=== PATIENT | male | born 1965 | race Caucasian/White ===

== ENCOUNTER → 2024-10-09 | Outpatient (CLI) | payer OTHER, SELFPAY ==
[2024-10-09 16:54] LABS: Hematocrit 46.3 % (40-54); Hemoglobin 16.0 g/dL (13.0-16.5); Immature Granulocytes Count 0.030 X10^3/uL (0.0-0.0); Mean Corp Hgb Conc 34.6 g/dL (32-36); Mean Corpuscular Volume 95.1 fL (80-94); Mean Platelet Vol. 11.3 fl (6.2-12.0); NRBC Flagged by Analyzer 0 % (0-5); Platelet Count 203 K/mm3 (150-450); RBC Distribution Width CV 12.2 % (11.6-14.6); RBC Distribution Width SD 42.8 fl (35.1-43.9); Red Blood Count 4.87 M/mm3 (4.6-6.2); White Blood Count 8.8 K/mm3 (4.4-11.0)
[2024-10-09 17:44] LABS: AST(SGOT) 20 U/L (<=37); Alanine Aminotransfer ALT/SGPT 19 U/L (<=46); Albumin, Serum 4.4 g/dL (3.4-4.8); Alkaline Phosphatase 55 U/L (40-129); Anion Gap 10 (5-15); BUN 15 mg/dL (4-19); BUN/Creat Ratio 12.6 RATIO (10-20); Calcium,Total 9.8 mg/dL (7.6-11.0); Carbon Dioxide 24.7 mmol/L (21.0-32.0); Chloride 105 mmol/L (98-108); Globulin 3.0 g/dL (2.2-4.2); Glucose 82 mg/dL (70-99); Potassium 4.4 mmol/L (3.3-5.1)
[2024-10-09 19:28] LABS: Amylase 40 U/L (28-100); Lipase 29 U/L (13-75)
== END | disposition home or self-care (01) ==
LOC: VSLAB 11:30
DX: R10.9 Unspecified abdominal pain (principal)
CPT/HCPCS: 36415; 80053; 82150; 83690; 85025

== ENCOUNTER → 2024-10-17 | Outpatient (CLI) | payer OTHER, SELFPAY ==
--- OUTSIDE RECORDS SUMMARY | 2024-10-17 07:14 | XMS RPT_ITS | CCD ---
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 Name Role Phone Beam FREEZING ROOM WORKER-C, Zebulun Primary Care Provider Beam FREEZING ROOM WORKER-C, Zebulun Attending Provider Beam VSC, Zebulun Referring Unavailable Beam VSC, Zebulun Attending Unavailable Beam VSC, Zebulun Primary Care Unavailable Beam VSC, Zebulun Attending Unavailable Beam VSC, Zebulun Primary Care Unavailable Problems Problem Classification Problem Date Documented Date Episodic/Chronic Abdominal pain (2 sources) Right upper quadrant pain; Translations: [Unspecified abdominal pain] Onset: 10-14-2024 Episodic Administrative/social admission (1 source) Administrative reason for encounter; Translations: [Encounter for other administrative examinations] 02-02-2023 Episodic Results Test Name Value Interpretation Reference Range Facility Absolute lymphocyte countOrd ered By: Roverto Posey on 10-09-2024 Lymphocytes Auto (Unsp spec) [#/Vol] 2.07 10*3/uL 0.83-4.51 [facility] Absolute neutrophil countOrd ered By: Roverto Posey on 10-09-2024 Neutrophils (Bld) [#/Vol] 6.0 10*3/uL 2.0-7.7 [facility] Amylaseon 10-09-2024 NICOLASA 40 U/L Normal 28-100 [facility] Comment on above: Performed By: #### L 500.4050, L501.2400, L501.2450, L100.0100 #### [facility] [address] [place], [place], [address] Anion gap in Serum or Plasma Ordered By: Roverto Posey on 10-09-2024 Anion gap [Moles/Vol] 10 mmol/L 5-15 [facility] Automated lymphocyte count a s percentage of total leukocytesOrdered By: Zebulun Beam on 10-09-2024 Lymphocytes/100 WBC Auto (Unsp spec) 23.5 % 19- [facility] BUN/creatinine ratioOrdered By: Zebulun Beam on 10-09-2024 Urea nitrogen/Creatinine [Mass ratio] 12.6 mg/mg 10-20 [facility] Basophil percentageOrdered B y: Zebulun Beam on 10-09-2024 Basophils/100 WBC (Bld) 0.6 % 0-[address] [facility] Bilirubin, totalOrdered By: Zebulun Beam on 10-09-2024 Bilirubin [Mass/Vol] 0.42 mg/dL 0.00-1.30 [facility] CBC W/Diff, Automatedon 09-18 Absolute Lymph 2.07 X10 3/uL Normal 0.83-4.51 [facility] Comment on above: Performed By: #### L 500.4050, L501.2400, L501.2450, L100.0100 #### [facility] [address] [place], [address] Absolute Neut 6.0 X10 3/uL Normal 2.0-7.7 [facility] Comment on above: Performed By: #### L 500.4050, L501.2400, L501.2450, L100.0100 #### [facility] [address] [place], [address] Basophils/100 WBC (Bld) 0.6 % Normal 0-[address] [facility] Comment on above: Performed By: #### L 500.4050, L501.2400, L501.2450, L100.0100 #### [facility] [address] [place], [address] Eosinophils/100 WBC (Bld) 0.8 % Normal 0-5 [facility] Comment on above: Performed By: #### L 500.4050, L501.2400, L501.2450, L100.0100 #### [facility] [address] [place], [address] Erythrocyte distribution width (RBC) [Ratio] 12.2 % Normal 11.6-14.6 [facility] Comment on above: Performed By: #### L 500.4050, L501.2400, L501.2450, L100.0100 #### [facility] [address] [place], [address] Hematocrit (Bld) [Volume fraction] 46.3 % Normal 40-54 [facility] Comment on above: Performed By: #### L 500.4050, L501.2400, L501.2450, L100.0100 #### [facility] [address] [place], [address] Hemoglobin (Bld) [Mass/Vol] 16.0 g/dL Normal 13.0-16.5 [facility] Comment on above: Performed By: #### L 500.4050, L501.2400, L501.2450, L100.0100 #### [facility] [address] [place], [address] IG% 0.300 Normal 0.0-0.9 [facility] Comment on above: Result Comment: IG% - Immature Granulocytes (promyelocytes, myelocytes and metamyelocytes) > 1% indicates that a LEFT SHIFT is Present. Performed By: #### L 500.4050, L501.2400, L501.2450, L100.0100 #### [facility] [address] [place], [address] Lymphocytes/100 WBC (Bld) 23.5 % Normal 19-41 [facility] Comment on above: Performed By: #### L 500.4050, L501.2400, L501.2450, L100.0100 #### [facility] [address] [place], [address] MCH (RBC) [Entitic mass] 32.9 pg High 27.0-32.0 [facility] Comment on above: Performed By: #### L 500.4050, L501.2400, L501.2450, L100.0100 #### [facility] [address] [place], [address] MCHC (RBC) [Mass/Vol] 34.6 g/dL Normal 32-36 [facility] Comment on above: Performed By: #### L 500.4050, L501.2400, L501.2450, L100.0100 #### [facility] [address] [place], [address] MCV (RBC) [Entitic vol] 95.1 fL High 80-94 [facility] Comment on above: Performed By: #### L 500.4050, L501.2400, L501.2450, L100.0100 #### [facility] [address] [place], [address] Monocytes/100 WBC (Bld) 6.4 % Normal 0-10 [facility] Comment on above: Performed By: #### L 500.4050, L501.2400, L501.2450, L100.0100 #### [facility] [address] [place], [address] Neutrophils/100 WBC (Bld) 68.4 % Normal 47-70 [facility] Comment on above: Performed By: #### L 500.4050, L501.2400, L501.2450, L100.0100 #### [facility] [address] [place], [address] Nucleated RBC (Bld) [#/Vol] 0 10*3/uL Normal 0-5 [facility] Comment on above: Performed By: #### L 500.4050, L501.2400, L501.2450, L100.0100 #### [facility] [address] [place], [address] Platelet mean volume (Bld) [Entitic vol] 11.3 fL Normal 6.2-12.0 [facility] Comment on above: Performed By: #### L 500.4050, L501.2400, L501.2450, L100.0100 #### [facility] [address] [place], [address] Platelets (Bld) [#/Vol] 203 10*3/uL Normal 150-450 [facility] Comment on above: Performed By: #### L 500.4050, L501.2400, L501.2450, L100.0100 #### [facility] [address] [place], [address] RBC (Bld) [#/Vol] 4.87 10*6/uL Normal 4.6-6.2 [facility] Comment on above: Performed By: #### L 500.4050, L501.2400, L501.2450, L100.0100 #### [facility] [address] [place], [address] RDW SD 42.8 fl Normal 35.1-43.9 [facility] Comment on above: Performed By: #### L 500.4050, L501.2400, L501.2450, L100.0100 #### [facility] [address] [place], [address] WBC (Bld) [#/Vol] 8.8 10*3/uL Normal 4.4-11.0 [facility] Comment on above: Performed By: #### L 500.4050, L501.2400, L501.2450, L100.0100 #### [facility] [address] [place], [address] Carbon dioxide, total [Moles /volume] in Central venous bloodOrdered By: Roverto kennedy 10-09-2024 CO2 [Moles/Vol] 24.7 mmol/L 21.0-32.0 [facility] Chloride assayOrdered By: Art Posey on 10-09-2024 Chloride [Moles/Vol] 105 mmol/L 98-108 [facility] Comprehensive Metabolic Prof ilon 10-09-2024 Albumin [Mass/Vol] 4.4 g/dL Normal 3.4-4.8 [facility] Comment on above: Performed By: #### L 500.4050, L501.2400, L501.2450, L100.0100 #### [facility] [address] [place], [address] Albumin/Globulin [Mass ratio] 1.4 {ratio} Normal 0.9-2.4 [facility] Comment on above: Performed By: #### L 500.4050, L501.2400, L501.2450, L100.0100 #### [facility] [address] [place], [address] ALK PHOS 55 U/L Normal 40-129 [facility] Comment on above: Performed By: #### L 500.4050, L501.2400, L501.2450, L100.0100 #### [facility] [address] [place], [address] ALT [Catalytic activity/Vol] 19 U/L Normal <=46 [facility] Comment on above: Performed By: #### L 500.4050, L501.2400, L501.2450, L100.0100 #### [facility] [address] [place], [address] AST [Catalytic activity/Vol] 20 U/L Normal <=37 [facility] Comment on above: Performed By: #### L 500.4050, L501.2400, L501.2450, L100.0100 #### [facility] [address] [place], [address] Bilirubin [Mass/Vol] 0.42 mg/dL Normal 0.00-1.30 [facility] Comment on above: Performed By: #### L 500.4050, L501.2400, L501.2450, L100.0100 #### [facility] [address] [place], [address] BUN/CRE 12.6 RATIO Normal 10-20 [facility] Comment on above: Performed By: #### L 500.4050, L501.2400, L501.2450, L100.0100 #### [facility] [address] [place], [address] Calcium [Mass/Vol] 9.8 mg/dL Normal 7.6-11.0 [facility] Comment on above: Performed By: #### L 500.4050, L501.2400, L501.2450, L100.0100 #### [facility] [address] [place], [address] Chloride [Moles/Vol] 105 mmol/L Normal 98-108 [facility] Comment on above: Performed By: #### L 500.4050, L501.2400, L501.2450, L100.0100 #### [facility] [address] [place], [address] CO2 [Moles/Vol] 24.7 mmol/L Normal 21.0-32.0 [facility] Comment on above: Performed By: #### L 500.4050, L501.2400, L501.2450, L100.0100 #### [facility] [address] [place], [address] Creatinine [Mass/Vol] 1.17 mg/dL Normal 0.70-1.20 [facility] Comment on above: Performed By: #### L 500.4050, L501.2400, L501.2450, L100.0100 #### [facility] [address] [place], [address] GAP 10 Normal 5-15 [facility] Comment on above: Performed By: #### L 500.4050, L501.2400, L501.2450, L100.0100 #### [facility] [address] [place], [address] GFR/1.73 sq M.predicted among non-blacks MDRD (S/P/Bld) [Vol rate/Area] 71 mL/min/{1.73_m2} Normal >60 [facility] Comment on above: Result Comment: mL/m in/1.73m2 CKD-EPI Creatinine Equation (2020) Performed By: #### L 500.4050, L501.2400, L501.2450, L100.0100 #### [facility] [address] [place], [address] Globulin (S) [Mass/Vol] 3.0 g/dL Normal 2.2-4.2 [facility] Comment on above: Performed By: #### L 500.4050, L501.2400, L501.2450, L100.0100 #### [facility] [address] [place], [address] Glucose [Mass/Vol] 82 mg/dL Normal 70-99 [facility] Comment on above: Performed By: #### L 500.4050, L501.2400, L501.2450, L100.0100 #### [facility] [address] [place], [address] Potassium [Moles/Vol] 4.4 mmol/L Normal 3.3-5.1 [facility] Comment on above: Performed By: #### L 500.4050, L501.2400, L501.2450, L100.0100 #### [facility] [address] [place], [address] Sodium [Moles/Vol] 140 mmol/L Normal 133-145 [facility] Comment on above: Performed By: #### L 500.4050, L501.2400, L501.2450, L100.0100 #### [facility] [address] [place], [address] T PROT 7.4 g/dL Normal 5.9-8.4 [facility] Comment on above: Performed By: #### L 500.4050, L501.2400, L501.2450, L100.0100 #### [facility] [address] [place], [address] Urea nitrogen [Mass/Vol] 15 mg/dL Normal 4-19 [facility] Comment on above: Performed By: #### L 500.4050, L501.2400, L501.2450, L100.0100 #### [facility] [address] [place], [address] Eosinophil percentageOrdered By: Roverto Posey on 10-09-2024 Eosinophils/100 WBC (Bld) 0.8 % 0-5 [facility] Erythrocyte distribution wid th ratioOrdered By: [facility] Pose[facility] on 10-09-2024 Erythrocyte distribution width (RBC) [Ratio] 12.2 % 11.6-14.6 [facility] Erythrocyte distribution wid th standard deviationOrdered By: [facility] Posey on 10-09-2024 Erythrocyte distribution width (RBC) [Ratio] 42.8 fl 35.1-43.9 [facility] Glomerular filtration rate ( GFR) estimation/1.73 sq m using serum, plasma, or whole bOrdered By: Roverto Posey on 10-09-2024 GFR/1.73 sq M.predicted among non-blacks MDRD (S/P/Bld) [Vol rate/Area] 71 mL/min/{1.73_m2} >60 [facility] Comment on above: mL/min/1.73m2 CKD-EP I Creatinine Equation (2020) Hematocrit Auto (Bld) [Volum e fraction]Ordered By: Emilylun Beam on 10-09-2024 Hematocrit (Bld) [Volume fraction] 46.3 % 40-54 [facility] Hemoglobin measurementOrdere d By: Zebulun Beam on 10-09-2024 Hemoglobin (Bld) [Mass/Vol] 16.0 g/dL 13.0-16.5 [facility] Immature granulocytes/100 WB C Auto (Bld)Ordered By: Artbulun Beam on 10-09-2024 Immature granulocytes/100 WBC (Bld) 0.300 % 0.0-0.9 [facility] Comment on above: IG% - Immature Granu locytes (promyelocytes, myelocytes and metamyelocytes) > 1% indicates that a LEFT SHIFT is Present. Laboratory - Chemistry and C hemistry - challengeOrdered By: Roverto Posey on 10-09-2024 AST [Catalytic activity/Vol] 20 U/L <38 [facility] Lipaseon 10-09-2024 Lipase [Catalytic activity/Vol] 29 U/L Normal 13-75 [facility] Comment on above: Result Comment: Daria alejandra note: LIPASE revised reference range effective 22. New Lipase methodology. Expected to produce lower values than the previous assay method. NEW Reference Range: 13 - 75 U/L Performed By: #### L 500.4050, L501.2400, L501.2450, L100.0100 #### [facility] [address] [place] [address]. [place], [address] Lipase measurementOrdered By : Emilylun Beam on 10-09-2024 Lipase [Catalytic activity/Vol] 29 U/L 13-75 [facility] Comment on above: Please note:LIPASE r evised reference range effective 22. New Lipase methodology. Expected to produce lower values than the previous assay method. NEW Reference Range: 13 - 75 U/L MCV (mean corpuscular volume ) determinationOrdered By: Magenn Beam on 10-09-2024 MCV (RBC) [Entitic vol] 95.1 fL High 80-[address] [facility] Mean corpuscular hemoglobin (MCH) determinationOrdered By: Roverto Posey on 10-09-2024 MCH (RBC) [Entitic mass] 32.9 pg High 27.0-32.0 [facility] Mean corpuscular hemoglobin concentration (MCHC) determinationOrdered By: Zebulun Beam on 10-09-2024 MCHC (RBC) [Mass/Vol] 34.6 g/dL 32-36 [facility] Mean platelet volume determi nationOrdered By: Zebulun Beam on 10-09-2024 Platelet mean volume (Bld) [Entitic vol] 11.3 fL 6.2-12.0 [facility] Monocyte percentageOrdered B y: Zebulun Beam on 10-09-2024 Monocytes/100 WBC (Bld) 6.4 % 0-[address] [facility] Neutrophil percentageOrdered By: Zebulun Beam on 10-09-2024 Neutrophils/100 WBC (Bld) 68.4 % 47-70 [facility] Nucleated red blood cell per centageOrdered By: Zeraullun Beam on 10-09-2024 Nucleated RBC/100 WBC (Bld) [Ratio] 0 % 0-5 [facility] Platelet countOrdered By: Art diaz Beam on 10-09-2024 Platelets (Bld) [#/Vol] 203 10*3/uL 150-450 [facility] Potassium measurement (mass/ volume)Ordered By: Emilylun Beam on 10-09-2024 Potassium (Unsp spec) [Mass/Vol] 4.4 mmol/L 3.3-5.1 [facility] RBC Auto (Bld) [#/Vol]Ordere d By: Zeraullun Beam on 10-09-2024 RBC (Bld) [#/Vol] 4.87 10*6/uL 4.6-6.2 [facility] Serum creatinine measurement (mass/volume)Ordered By: Roverto Beam on 10-09-2024 Creatinine [Mass/Vol] 1.17 mg/dL 0.70-1.20 [facility] Serum globulin measurementOr dered By: Emilylushanika Beam on 10-09-2024 Globulin (S) [Mass/Vol] 3.0 g/dL 2.2-4.2 [facility] Serum glucose measurement (m ass/volume)Ordered By: Roverto Posey on 10-09-2024 Glucose [Mass/Vol] 82 mg/dL 70-99 [facility] Serum or plasma alanine gonzalez otransferase (ALT) measurementOrdered By: Roverto Posey on 10-09-2024 ALT [Catalytic activity/Vol] 19 U/L <47 [facility] Serum or plasma albumin annetta urement (mass/volume)Ordered By: Roverto Posey on 10-09-2024 Albumin [Mass/Vol] 4.4 g/dL 3.4-4.8 [facility] Serum or plasma albumin/glob ulin mass ratioOrdered By: Roverto Posey on 10-09-2024 Albumin/Globulin [Mass ratio] 1.4 {ratio} 0.9-2.4 [facility] Serum or plasma alkaline kianna sphatase measurementOrdered By: Roverto Posey on 10-09-2024 ALP [Catalytic activity/Vol] 55 U/L 40-129 [facility] Serum or plasma amylase annetta urement (enzymatic activity/volume)Ordered By: Roverto Posey on 10-09-2024 Amylase [Catalytic activity/Vol] 40 U/L 28-100 [facility] Serum or plasma calcium annetta urement (mass/volume)Ordered By: Roverto Posey on 10-09-2024 Calcium [Mass/Vol] 9.8 mg/dL 7.6-11.0 [facility] Serum or plasma urea nitroge n measurement (mass/volume)Ordered By: Roverto Posey on 10-09-2024 Urea nitrogen [Mass/Vol] 15 mg/dL 4-19 [facility] Sodium levelOrdered By: Emily Posey on 10-09-2024 Sodium [Moles/Vol] 140 mmol/L 133-145 [facility] Total proteinOrdered By: Rah Posey on 10-09-2024 Protein [Mass/Vol] 7.4 g/dL 5.9-8.4 [facility] White blood cell (WBC) count Ordered By: Roverto Posey on 10-09-2024 WBC (Bld) [#/Vol] 8.8 10*3/uL 4.4-11.0 [facility] Encounters Encounter Date Encounter Type Care Provider Facility Start: 10-17-2024 ambulatory Zebulun Beam VSC Facili ty:[facility] Start: 10-09-2024 End: 10-09-2024 ambulatory Zebulun Beam [employer] WORKER-C Work Phone: -[facility] Start: 10-09-2024 End: 10-09-2024 Patient encounter procedure Zebulun Beam [employer]ING RO[employer] WORKER-C -[facility] Start: 10-09-2024 End: 10-09-2024 ambulatory Zebulun Beam VSC Facility:[facility] Payers Date Payer Category Payer Self-pay 2024 Unknown [id number] Unknown [id number] Unknown [id number] Unknown [id number] Social History Date Type [facility]ail [facility] Work Phone: Start: 1965 Sex Assigned At Male [facility] Evaluation note Note Date & Type Note Facility Evaluation note No assessment information availa ble [facility] Work Phone: Reason for referral (narrative) Note Date & Type Note Facility Reason for referral (narrative) No reason for referral information available [facility] Work Phone: Summary Purpose Family History No Family History Records Found Advance Directives No Advanced Directives Records Found Additional Source Comments Care Teams (unrecognized sec tion and content) Team Status: Active Member Role/Relationship Status Dates Artbugrettan Beam VSC, FREEZING ROOM WORKER-C Primary Care Provider Active Team Status: Inactive Member Role/Relationship Status Dates Zebulun Beam VSC, FREEZING ROOM WORKER-C Primary Care Provider Active Start: October 09, 2024 End: October 09, 2024 Zebulun Beam VSC, [employer]ZING ROOM WORKER-C Attending Provider Active Start: October 09, 2024 End: October 09, 2024 Goals (unrecognized section and content) Goals may be documented in a n alternate section (unrecognized sect ion and content) No Status Records Found INFORMATION SOURCE (unrecogn ized section and content) DATE CREATED AUTHOR 10/16/2024 [facility] FOR RECORDS PERTAINING TO PATIENTS WHO ARE OR HAVE BEEN ENROLLED IN A CHEMICAL DEPENDENCY/SUBSTANCEABUSE PROGRAM, SOME INFORMATION MAY BE OMITTED. This clinical summary was aggregated from multiple sources. Caution should be exercised in using it in the provision of clinical care. This summary normalizes information from multiple sources, and as a consequence, information in this document may materially change the coding, format and clinical context of patient data. In addition, data may be omitted in some cases. CLINICAL DECISIONS SHOULD BE BASED ON THE PRIMARY CLINICAL RECORDS. [facility] [employer] [facility]. provides no warranty or guarantee of the accuracy or completeness of information in this document.
--- NOTE | 2024-10-17 07:16 | US_ITS ---
PROCEDURE: ABDOMEN LIMITED 10/17/2024 REASON FOR EXAM: RUQ PAIN R/O GALLBLADDER ETIOLOGY COMPARISON: None FINDINGS: Liver: Diffusely echogenic suggesting fatty infiltration. There is a 2.2 cm x 0.7 cm x 0.9 cm focal hypodensity adjacent to the gallbladder lumen suggestive of possible focal fatty sparing. Gallbladder: No stones, sludge, wall thickening or tenderness. Common bile duct: Dilated measuring up to 6.6 mm . Pancreas: Normal Other: Visualized portions of the right kidney are unremarkable. No right upper quadrant ascites. US/Abdomen Limited IMPRESSION: Fatty infiltration of the liver with focal fatty sparing. Reading Location: [facility]
== END | disposition home or self-care (01) ==
DX: R10.11 Right upper quadrant pain (principal)
CPT/HCPCS: 76705